=== PATIENT | male | born 1970 | race African-American/Black ===

== ENCOUNTER 2019-06-20 21:38 | Inpatient (IN) ==
[2019-06-20] MEDS ORDERED: ACETAMINOPHEN 500 MG TAB PO STA (23:59)
[2019-06-20] MEDS ORDERED: SODIUM CHLORIDE 0.9% 1000ML 1,000 ML IV ONE (23:59)
[2019-06-21 00:38] LABS: Basophils # (auto) 0.02 K/uL (0-0.2); Basophils % (auto) 0.2 %; Hematocrit (blood only) 42.7 % (42-52); Immature Granulocytes # (auto) 0.02 K/uL (0.00-0.02); Immature Granulocytes % (auto) 0.2 %; Lymphocytes # (auto) 1.57 K/uL (1.2-3.4); Lymphocytes % (auto) 16.7 %; Mean Corpuscular Hemoglobin 27.9 pg (25-34); Mean Corpuscular Hgb Conc 32.8 g/dL (32-36); Mean Corpuscular Volume 85.2 fL (80-100); Mean Platelet Volume 9.4 fL (7.4-10.4); Monocytes # (auto) 1.52 K/uL (0.11-0.59); Monocytes % (auto) 16.2 %; Neutrophils # (auto) 6.28 K/uL (1.4-6.5); Neutrophils % (auto) 66.7 %; Platelet Count 145 K/uL (130-400); RDW Coefficient of Variation 14.3 % (11.5-14.5); RDW Standard Deviation 44.5 fL (36.4-46.3); Red Blood Count 5.01 M/uL (4.7-6.1); White Blood Count 9.41 K/uL (4.8-10.8)
[2019-06-21 00:50] LABS: INR 1.2 (0.9-1.1); Partial Thromboplastin Time 27.1 Seconds (21.0-31.0); Prothrombin Time 12.5 Seconds (9.0-12.0)
[2019-06-21 00:55] LABS: Alanine Aminotransferase 36 U/L (12-78); Albumin Level 3.6 gm/dl (3.4-5.0); Aspartate Aminotransferase 45 U/L (15-37); BUN Creatinine Ratio 11.9 (10-20); Blood Urea Nitrogen 21 mg/dl (7-18); Carbon Dioxide 23 mmol/L (21-32); Chloride 103 mmol/L (98-107); Creatinine Clr Calc Pharmacy 56.2 ml/min; Est GFR (African American) 53.3; Glucose 121 mg/dl (70-99); Potassium 3.9 mmol/L (3.5-5.1); Sodium 137 mmol/L (136-145)
[2019-06-21 01:07] LABS: Albumin Globulin Ratio 0.7 (0.9-2); Alkaline Phosphatase 47 U/L (45-117); Bilirubin,Total 0.4 mg/dl (0.2-1); Creatine Kinase 586 U/L (39-308); Creatine Kinase MB < 1.0 ng/ml (0.5-3.6); Globulin 5.4 gm/dl (2.5-4.0); Troponin I 0.452 ng/ml (0-0.045)
[2019-06-21 01:11] LABS: Influenza A virus by PCR Neg for Influ A (Neg); Influenza B virus by PCR Neg for Influ B (Neg)
[2019-06-21] MEDS ORDERED: VANCOMYCIN CONSULT ACTIVE PRN (01:12)
[2019-06-21] MEDS ORDERED: LEVOFLOXACIN/D5W 750 MG/150 ML BAG IV STA (01:12)
[2019-06-21] MEDS ORDERED: VANCOMYCIN HCL 1,000 MG/270 ML BAG IV STA (01:12)
[2019-06-21] MEDS ORDERED: PIPERACILLIN/TAZOBACTAM 4.5 GM/120 ML BAG IV ONE (01:12)
[2019-06-21] MEDS ORDERED: PIPERACILL/TAZOBAC CONSULT ACTIVE PRN ×2 (01:12→07:01)
[2019-06-21] MEDS ORDERED: OPTIRAY 320 125ml IV PRN (01:49)
[2019-06-21] MEDS: SODIUM CHLORIDE 0.9% 1000ML 1,000 ML IV SCH ×3 (03:05→19:10)
--- NOTE | 2019-06-21 04:43 | History and Physical Report ---
DATE OF ADMISSION: 06/20/2019 CHIEF COMPLAINT: Fever. HISTORY OF PRESENT ILLNESS: This is a 49-year-old male with past medical history significant for schizophrenia and bipolar, who was brought in from half-way because of low-grade fever and some questionable mental status change. In the ER, he was found to have temperature spike and leukocytosis. Chest x-ray showed some right middle lobe pneumonia, received IV antibiotics in the ER. Currently, resting comfortably. The patient says he was having fever for the last 2-3 days, feeling weak and generalized weakness. He has some dry cough. That is the reason he came to the ER, has some mild headaches, no dizziness, no earache, no runny nose, no sore throat, no difficulty swallowing. Appetite is okay. Denies any shortness of breath, no chest pain, no nausea, no vomiting, no abdominal pain. Normal bowel and bladder movements. No burning micturition, no melena or black stools. No rash. Currently, resting comfortably. ALLERGIES: NKA. PAST MEDICAL HISTORY: As mentioned above. PAST SURGICAL HISTORY: None as per patient. MEDICATIONS: Benztropine 1mg po hs,, divalproex 1000mg po hs,, fluphenazine decanoate 25mg Im weekly. FAMILY HISTORY: Not on file. SOCIAL HISTORY: Quit smoking in January, did smoke few cigarettes a day for 20 years. Denies any alcohol use. History of smoking marijuana in the past. REVIEW OF SYMPTOMS: As per HPI. Rest of review of symptoms is negative. PHYSICAL EXAMINATION: GENERAL: The patient is alert and oriented, not in acute distress. HEENT: No pallor, no icterus. Pupils equal, round, reactive to light. NECK: No JVD, no neck masses. Supple. CARDIOVASCULAR: S1, S2 heard, regular rate and rhythm, no murmur, no gallop. RESPIRATORY SYSTEM: Normal AP diameter. No accessory muscle use. No wheezing, no crackles. ABDOMEN: Soft, bowel sounds present, nontender. No distention. CENTRAL NERVOUS SYSTEM: Cranial nerves II-XII grossly nonfocal. EXTREMITIES: No edema, no erythema. LABORATORY DATA: Wbc 9.3, hb 14.1, Hct 43.5,platelets 175, pt 12.5, inr 1.2, aptt 27.1, Sodium 137, potassium 3.9, chloride 103, co2 23, BUN 21, Cr 1.7, glucose 121, TSh 0.3. EKG NSR at rate of 98. Non specific St changes seen. CXR right middle lobe opacity. CTA chest No PE. Right upper lobe pneumonia, reactive right hilar lymphadenopathy, trace right pleural effusion. ASSESSMENT AND PLAN: This 49-year-old male presents with fever, cough, questionable mental status change and found to have pneumonia. 1. Pneumonia, right middle lobe, fever, leukocytosis. Received IV Zosyn, vancomycin and Levaquin in the ER. We will continue zosyn and doxycycline. Follow the cultures. Follow the response. IV fluids 125 mL per hour. Monitor in tele floor, med/surg tele. 2. History of schizophrenia and bipolar. Continue home medications. 3. ELENA vs CKD. Creatine 1.7. No baseline levels available. On iv fluids. Follow labs. 4. Deep venous thrombosis prophylaxis. Heparin subQ. DISPOSITION: Admit to med/surg tele. Level 1 full code. MTDD
[2019-06-21] MEDS: HEPARIN SOD 5,000 UNIT/0.5 ML VIAL SQ SCH ×3 (05:10→20:14)
--- NOTE | 2019-06-21 06:35 | Emergency Department Note ---
Entered by Cristian Dowling acting as a scribe for Horacio Reynolds MD History of Present Illness General Chief complaint: Fever Stated complaint: CHANGE OF MENTAL STATUS/FEVER Source: patient History of Present Illness Onset (ago): day(s) 3 Pain Consistency: + constant Quality: + other (fever) Associated symptoms: + other (Positive for intermittent cough, weakness, and AMS. Negative for abdominal pain.) Treatments prior to arrival: none The patient is a 49 year old male who presents to the emergency department with complaints of a constant fever beginning 3 days ago. The patient states that he has had an intermittent cough for the last 4-5 days. He notes that he has had a fever and weakness for the last 3 days. He also complains of AMS. He denies any abdominal pain. He reports that he is a former smoker. The patient states that he did not take any Tylenol or ibuprofen today. Home Medications Home Medications Medication Instructions Recorded Confirmed Type benztropine 1 mg PO HS 06/21/19 06/21/19 History divalproex 1,000 mg PO HS 06/21/19 06/21/19 History fluphenazine decanoate See Rx Instructions .ROUTE .COMPLEX 06/21/19 06/22/19 History acetaminophen 1,000 mg PO Q8H PRN #60 tab 06/24/19 Rx amoxicillin-pot clavulanate 1 tab PO BID #7 tab 06/24/19 Rx [Augmentin] doxycycline hyclate 100 mg PO BID #7 tab 06/24/19 Rx guaifenesin 200 mg PO Q6H PRN #118 ml 06/24/19 Rx Allergies Allergy/AdvReac Type Severity Reaction Status Date / Time No Known Allergies Allergy Unverified 06/21/19 00:57 Past Med/Surg History Medical History (Updated 06/24/19 @ 14:28 by Jonh Slade MD) Bipolar disorder (Chronic) No chronic problems Schizophrenia (Chronic) Family History (Updated 06/21/19 @ 05:02 by Cristian Dowling) Other No significant family history Social History (Updated 06/21/19 @ 05:02 by Cristian Dowling) Current Living Situation: Other Current Living Situation Comment: Custodial Smoking Status: Former smoker Review of Systems See HPI for pertinent positives & negatives. and A total of 10 systems reviewed and were otherwise negative Physical Exam Vital Signs Vital Signs - 24 hr 06/20/19 22:03 06/21/19 00:31 06/21/19 00:32 Temperature 39.4 C H Temperature Source Oral Pulse Rate 101 H 102 H Pulse Rate [Apical] 104 H Pulse Rate from SpO2 Sensor 102 H Respiratory Rate 18 24 Respiratory Effort / Characteristics Non-Labored Spontaneous Non-Labored Respiratory Depth Normal Normal Respiratory Pattern Regular Blood Pressure 103/62 116/69 Blood Pressure [Right Arm] 116/69 Blood Pressure Mean 75 84 Blood Pressure Mean [Right Arm] 84 Blood Pressure Position Sitting Pulse Oximetry 96 97 97 Oxygen Delivery Method Room Air Room Air Room Air Sepsis Recent Fever Within 48 Hours Yes Sepsis Action Taken by Nursing No Action Required 06/21/19 01:00 06/21/19 01:30 Temperature Temperature Source Pulse Rate 101 H 97 H Pulse Rate [Apical] Pulse Rate from SpO2 Sensor 100 H 97 H Respiratory Rate 28 H 34 H Respiratory Effort / Characteristics Respiratory Depth Respiratory Pattern Blood Pressure 107/68 106/58 L Blood Pressure [Right Arm] Blood Pressure Mean 81 74 Blood Pressure Mean [Right Arm] Blood Pressure Position Pulse Oximetry 96 95 Oxygen Delivery Method Sepsis Recent Fever Within 48 Hours Sepsis Action Taken by Nursing GENERAL: Awake, alert, well-appearing, in no acute distress HENT: Normocephalic, atraumatic. Oropharynx unremarkable. EYES: Normal conjunctiva. Sclera non-icteric. NECK: Supple. No nuchal rigidity. FROM. No JVD. RESPIRATORY: Clear to auscultation. CARDIAC: Regular rate, normal rhythm. Extremities warm and well perfused. Pulses equal. ABDOMEN: Soft, non-distended. No tenderness to palpation. No rebound or guarding. No masses. RECTAL: Deferred. MUSCULOSKELETAL: Chest examination reveals no tenderness. The back is symmetrical on inspection without obvious abnormality. There is no CVA tenderness to palpation. No joint edema. LOWER EXTREMITIES: Calves are equal size bilaterally and non-tender. No edema. No discoloration. NEURO: Normal sensorium. No sensory or motor deficits noted. SKIN: No rash or jaundice noted. Course 0010: The patient was evaluated in room C9. A complete history and physical exam was performed. 0146: Upon reevaluation, the patient is feeling better. I discussed the findings and the treatment plan with the patient. He verbalizes agreement and understanding. I discussed the patients case with Dr. Tran HospitalistRosendo. The patient will be evaluated for further treatment. Consultations Consultation #1: I discussed the patients case with Dr. Tran HospitalistRosendo. The patient will be evaluated for further treatment. Time: 01:46 Administered Medications Discontinued Medications Acetaminophen (Tylenol) 1,000 mg PO NOW STA Stop: 06/21/19 00:00 Last Admin: 06/21/19 00:17 Dose: 1,000 mg Documented by: [id number] Acetaminophen (Tylenol) 650 mg PO Q4H PRN PRN Reason: Pain or Fever Stop: 07/21/19 15:19 Last Admin: 06/23/19 22:35 Dose: 650 mg Documented by: [id number] Admin: 06/22/19 19:56 Dose: 650 mg Documented by: [id number] Admin: 06/22/19 11:22 Dose: 650 mg Documented by: [id number] Admin: 06/21/19 23:22 Dose: 650 mg Documented by: [id number] Admin: 06/21/19 15:36 Dose: 650 mg Documented by: [id number] Benztropine Mesylate (Cogentin) 1 mg PO [facility] Stop: 07/21/19 20:59 Last Admin: 06/23/19 20:49 Dose: 1 mg Documented by: [id number] Admin: 06/22/19 20:54 Dose: 1 mg Documented by: [id number] Admin: 06/21/19 20:14 Dose: 1 mg Documented by: [id number] Divalproex Sodium (Depakote Delay Release) 1,000 mg PO [facility] Stop: 07/21/19 20:59 Last Admin: 06/23/19 20:49 Dose: 1,000 mg Documented by: [id number] Admin: 06/22/19 20:54 Dose: 1,000 mg Documented by: [id number] Admin: 06/21/19 20:13 Dose: 1,000 mg Documented by: [id number] Fluphenazine Decanoate (Prolixin Decanoate) 25 mg IM We@0900 [facility] Stop: 07/22/19 08:59 Last Admin: 06/22/19 08:13 Dose: 25 mg Documented by: [id number] Heparin Sodium (Porcine) (Heparin Sodium (Porcine)) 5,000 units SQ Q8 [facility] Stop: 07/21/19 05:59 Last Admin: 06/24/19 05:42 Dose: 5,000 units Documented by: [id number] Cosigned by: [id number] Admin: 06/23/19 20:50 Dose: 5,000 units Documented by: [id number] Cosigned by: [id number] Admin: 06/23/19 13:40 Dose: 5,000 units Documented by: [id number] Cosigned by: [id number] Admin: 06/23/19 05:49 Dose: 5,000 units Documented by: [id number] Cosigned by: [id number] Admin: 06/22/19 20:58 Dose: 5,000 units Documented by: [id number] Cosigned by: [id number] Admin: 06/22/19 14:00 Dose: 5,000 units Documented by: [id number] Cosigned by: [id number] Admin: 06/22/19 05:45 Dose: 5,000 units Documented by: [id number] Cosigned by: [id number] Admin: 06/21/19 20:14 Dose: 5,000 units Documented by: [id number] Cosigned by: [id number] Admin: 06/21/19 14:12 Dose: 5,000 units Documented by: [id number] Cosigned by: [id number] Admin: 06/21/19 05:10 Dose: 5,000 units Documented by: [id number] Cosigned by: [id number] Sodium Chloride (Nss 1000ml) 1,000 mls @ 999 mls/hr IV .Q1H1M ONE Stop: 06/21/19 00:59 Last Infusion: 06/21/19 01:38 Dose: 0 mls/hr Documented by: [id number] Admin: 06/21/19 00:20 Dose: 999 mls/hr Documented by: [id number] Piperacillin Sod/Tazobactam Sod (Zosyn) 4.5 gm in 120 mls @ 240 mls/hr IV NOW ONE Stop: 06/21/19 01:41 Last Infusion: 06/21/19 04:58 Dose: 0 mls/hr Documented by: [id number] Admin: 06/21/19 01:50 Dose: 240 mls/hr Documented by: [id number] Vancomycin HCl (Vancomycin Hcl) 1,000 mg in 270 mls @ 125 mls/hr IV NOW STA; Pr otocol Stop: 06/21/19 03:21 Last Admin: 06/21/19 05:00 Dose: Not Given Documented by: [id number] Levofloxacin/Dextrose (Levaquin/D5w) 750 mg in 150 mls @ 100 mls/hr IV NOW STA Stop: 06/21/19 02:41 Last Admin: 06/21/19 04:59 Dose: Not Given Documented by: [id number] Doxycycline Hyclate 100 mg/ (Dextrose) 110 mls @ 50 mls/hr IV BID [facility] Stop: 06/28/19 08:59 Last Infusion: 06/24/19 10:27 Dose: 0 mls/hr Documented by: [id number] Admin: 06/24/19 08:06 Dose: Not Given Documented by: [id number] Admin: 06/24/19 08:03 Dose: 50 mls/hr Documented by: [id number] Infusion: 06/23/19 22:59 Dose: 0 mls/hr Documented by: [id number] Admin: 06/23/19 20:47 Dose: 50 mls/hr Documented by: [id number] Infusion: 06/23/19 10:47 Dose: 50 mls/hr Documented by: [id number] Admin: 06/23/19 08:23 Dose: 50 mls/hr Documented by: [id number] Infusion: 06/22/19 23:06 Dose: 0 mls/hr Documented by: [id number] Admin: 06/22/19 20:54 Dose: 50 mls/hr Documented by: [id number] Infusion: 06/22/19 10:26 Dose: 0 mls/hr Documented by: [id number] Admin: 06/22/19 08:14 Dose: 50 mls/hr Documented by: [id number] Infusion: 06/21/19 22:26 Dose: 0 mls/hr Documented by: [id number] Admin: 06/21/19 20:13 Dose: 50 mls/hr Documented by: [id number] Infusion: 06/21/19 13:24 Dose: 0 mls/hr Documented by: [id number] Admin: 06/21/19 11:03 Dose: 50 mls/hr Documented by: [id number] Sodium Chloride (Nss 1000ml) 1,000 mls @ 125 mls/hr IV .Q8H [facility] Stop: 07/21/19 04:29 Last Admin: 06/24/19 14:19 Dose: 125 mls/hr Documented by: [id number] Infusion: 06/24/19 12:20 Dose: 125 mls/hr Documented by: [id number] Admin: 06/24/19 04:20 Dose: 125 mls/hr Documented by: [id number] Infusion: 06/24/19 03:50 Dose: 125 mls/hr Documented by: [id number] Admin: 06/23/19 19:50 Dose: 125 mls/hr Documented by: [id number] Infusion: 06/23/19 19:50 Dose: 125 mls/hr Documented by: [id number] Infusion: 06/23/19 19:01 Dose: 125 mls/hr Documented by: [id number] Admin: 06/23/19 11:07 Dose: Not Given Documented by: [id number] Admin: 06/23/19 11:03 Dose: 125 mls/hr Documented by: [id number] Infusion: 06/23/19 10:43 Dose: 125 mls/hr Documented by: [id number] Admin: 06/23/19 02:43 Dose: 125 mls/hr Documented by: [id number] Infusion: 06/23/19 00:12 Dose: 125 mls/hr Documented by: [id number] Infusion: 06/22/19 19:57 Dose: 125 mls/hr Documented by: [id number] Admin: 06/22/19 12:20 Dose: 125 mls/hr Documented by: [id number] Infusion: 06/22/19 11:10 Dose: 125 mls/hr Documented by: [id number] Admin: 06/22/19 03:10 Dose: 125 mls/hr Documented by: [id number] Infusion: 06/22/19 03:10 Dose: 125 mls/hr Documented by: [id number] Admin: 06/21/19 19:10 Dose: 125 mls/hr Documented by: [id number] Infusion: 06/21/19 19:09 Dose: 125 mls/hr Documented by: [id number] Admin: 06/21/19 11:09 Dose: 125 mls/hr Documented by: [id number] Infusion: 06/21/19 11:05 Dose: 125 mls/hr Documented by: [id number] Admin: 06/21/19 03:05 Dose: 125 mls/hr Documented by: [id number] Piperacillin Sod/Tazobactam (Sod 3.375 gm/ Dextrose) 115 mls @ 28.75 mls/hr IV Q8H [facility]; Protocol Stop: 06/28/19 07:59 Last Infusion: 06/24/19 14:30 Dose: 0 mls/hr Documented by: [id number] Admin: 06/24/19 10:27 Dose: 28.8 mls/hr Documented by: [id number] Infusion: 06/24/19 03:42 Dose: 0 mls/hr Documented by: [id number] Admin: 06/23/19 23:45 Dose: 28.8 mls/hr Documented by: [id number] Infusion: 06/23/19 19:57 Dose: 0 mls/hr Documented by: [id number] Admin: 06/23/19 15:55 Dose: 28.8 mls/hr Documented by: [id number] Infusion: 06/23/19 12:58 Dose: 28.8 mls/hr Documented by: [id number] Admin: 06/23/19 08:46 Dose: 28.8 mls/hr Documented by: [id number] Infusion: 06/23/19 03:23 Dose: 0 mls/hr Documented by: [id number] Admin: 06/22/19 23:23 Dose: 28.8 mls/hr Documented by: [id number] Infusion: 06/22/19 19:57 Dose: 0 mls/hr Documented by: [id number] Admin: 06/22/19 15:51 Dose: 28.8 mls/hr Documented by: [id number] Infusion: 06/22/19 12:20 Dose: 0 mls/hr Documented by: [id number] Admin: 06/22/19 08:13 Dose: 28.8 mls/hr Documented by: [id number] Infusion: 06/22/19 03:22 Dose: 0 mls/hr Documented by: [id number] Admin: 06/21/19 23:22 Dose: 28.8 mls/hr Documented by: [id number] Infusion: 06/21/19 19:41 Dose: 0 mls/hr Documented by: [id number] Admin: 06/21/19 15:36 Dose: 28.8 mls/hr Documented by: [id number] Infusion: 06/21/19 12:54 Dose: 0 mls/hr Documented by: [id number] Admin: 06/21/19 08:26 Dose: 28.8 mls/hr Documented by: [id number] Ibuprofen (Motrin) 600 mg PO NOW STA Stop: 06/22/19 20:45 Last Admin: 06/22/19 20:53 Dose: 600 mg Documented by: [id number] Influenza Virus Vaccine Quadrival (Flucelvax Quad Vaccine) 0.5 ml IM .ONCE ONE Stop: 06/23/19 14:01 Last Admin: 06/23/19 13:41 Dose: 0.5 ml Documented by: [id number] Ioversol (Optiray 320 125ml) 125 ml IV ONCE PRN PRN Reason: Interaction Checking Stop: 06/25/19 01:48 Last Admin: 06/21/19 01:49 Dose: 86 ml Documented by: [id number] Ketorolac Tromethamine (Toradol) 30 mg IV NOW ONE Stop: 06/22/19 01:23 Last Admin: 06/22/19 01:33 Dose: 30 mg Documented by: [id number] Ketorolac Tromethamine (Toradol) 15 mg IV NOW ONE Stop: 06/22/19 23:06 Last Admin: 06/22/19 23:17 Dose: 15 mg Documented by: [id number] Ketorolac Tromethamine (Toradol) 15 mg IV NOW ONE Stop: 06/23/19 23:23 Last Admin: 06/23/19 23:45 Dose: 15 mg Documented by: [id number] Impression & Plan Fever, Pneumonia, Elevated troponin Critical Care Time I have personally spent greater than 30 minutes of critical care time in the direct management of this patient. This includes bedside care, interpretation of diagnostic studies, and testing, discussion with consultants, patient, and family members, and other required patient management activities. This 30 minutes is in excess of all separately billable procedures. Discharge Plan Visit Data *Final* Discharge Date/Time: 06/21/19 04:24 Chief Complaint: Fever Stated Complaint: CHANGE OF MENTAL STATUS/FEVER ED Provider: Horacio Reynolds Discharge Problem: Fever, Pneumonia, Elevated troponin Patient Disposition: Admitted As Inpatient Condition: Good Medical Decision Making Differential Diagnosis Differential diagnosis: Etiologies such as viral syndrome, otitis, pharyngitis, pneumonia, influenza, meningitis, urinary tract infection, septic arthritis, soft tissue infectious process, intra-abdominal process, sepsis, bacteremia, as well as others were entertained. Medical Records Attestation: I reviewed the patient's medical records. Home Medications Current Medication List: was personally reviewed by me Laboratory Data Attestation: I reviewed the patient's lab results. Result diagrams: 06/22/19 05:42 06/22/19 05:42 Lab Results 06/21/19 06/21/19 06/21/19 Range/Units 00:22 00:22 00:22 WBC 9.41 (4.8-10.8) K/uL RBC 5.01 (4.7-6.1) M/uL Hgb 14.0 (14.0-18.0) g/dL Hct 42.7 (42-52) % MCV 85.2 (80-100) fL MCH 27.9 (25-34) pg MCHC 32.8 (32-36) g/dL RDW Std Deviation 44.5 (36.4-46.3) fL RDW Coeff of Will 14.3 (11.5-14.5) % Plt Count 145 (130-400) K/uL MPV 9.4 (7.4-10.4) fL Immature Gran % (Auto) 0.2 % Neut % (Auto) 66.7 % Lymph % (Auto) 16.7 % [place] % (Auto) 16.2 % Eos % (Auto) 0.0 % Baso % (Auto) 0.2 % Immature Gran # (Auto) 0.02 (0.00-0.02) K/uL Neut # (Auto) 6.28 (1.4-6.5) K/uL Lymph # (Auto) 1.57 (1.2-3.4) K/uL [place] # (Auto) 1.52 H (0.11-0.59) K/uL Eos # (Auto) 0.00 (0-0.5) K/uL Baso # (Auto) 0.02 (0-0.2) K/uL PT 12.5 H (9.0-12.0) Seconds INR 1.2 H (0.9-1.1) APTT 27.1 (21.0-31.0) Seconds PTT Ratio 1.0 Sodium 137 (136-145) mmol/L Potassium 3.9 (3.5-5.1) mmol/L Chloride 103 (98-107) mmol/L Carbon Dioxide 23 (21-32) mmol/L Anion Gap 11.0 (3-11) BUN 21 H (7-18) mg/dl Creatinine 1.73 H (0.6-1.4) mg/dl Est Cr Clr Drug Dosing 56.2 ml/min Est GFR ( Amer) 53.3 Est GFR (Non-Af Amer) 46.0 BUN/Creatinine Ratio 11.9 (10-20) Glucose 121 H (70-99) mg/dl Lactate (0.4-2.0) mmol/L Calcium 9.0 (8.5-10.1) mg/dl Total Bilirubin 0.4 (0.2-1) mg/dl AST 45 H (15-37) U/L ALT 36 (12-78) U/L Alkaline Phosphatase 47 (45-117) U/L Total Creatine Kinase 586 H (39-308) U/L CK-MB (CK-2) < 1.0 (0.5-3.6) ng/ml CK/CKMB % Calc TNP Troponin I 0.452 H* (0-0.045) ng/ml Total Protein 9.0 H (6.4-8.2) gm/dl Albumin 3.6 (3.4-5.0) gm/dl Globulin 5.4 H (2.5-4.0) gm/dl Albumin/Globulin Ratio 0.7 L (0.9-2) Influenza Type A (PCR) (Neg) Influenza Type B (PCR) (Neg) 06/21/19 06/21/19 Range/Units 00:22 00:49 WBC (4.8-10.8) K/uL RBC (4.7-6.1) M/uL Hgb (14.0-18.0) g/dL Hct (42-52) % MCV (80-100) fL MCH (25-34) pg MCHC (32-36) g/dL RDW Std Deviation (36.4-46.3) fL RDW Coeff of Will (11.5-14.5) % Plt Count (130-400) K/uL MPV (7.4-10.4) fL Immature Gran % (Auto) % Neut % (Auto) % Lymph % (Auto) % [place] % (Auto) % Eos % (Auto) % Baso % (Auto) % Immature Gran # (Auto) (0.00-0.02) K/uL Neut # (Auto) (1.4-6.5) K/uL Lymph # (Auto) (1.2-3.4) K/uL [place] # (Auto) (0.11-0.59) K/uL Eos # (Auto) (0-0.5) K/uL Baso # (Auto) (0-0.2) K/uL PT (9.0-12.0) Seconds INR (0.9-1.1) APTT (21.0-31.0) Seconds PTT Ratio Sodium (136-145) mmol/L Potassium (3.5-5.1) mmol/L Chloride (98-107) mmol/L Carbon Dioxide (21-32) mmol/L Anion Gap (3-11) BUN (7-18) mg/dl Creatinine (0.6-1.4) mg/dl Est Cr Clr Drug Dosing ml/min Est GFR ( Amer) Est GFR (Non-Af Amer) BUN/Creatinine Ratio (10-20) Glucose (70-99) mg/dl Lactate 1.7 (0.4-2.0) mmol/L Calcium (8.5-10.1) mg/dl Total Bilirubin (0.2-1) mg/dl AST (15-37) U/L ALT (12-78) U/L Alkaline Phosphatase (45-117) U/L Total Creatine Kinase (39-308) U/L CK-MB (CK-2) (0.5-3.6) ng/ml CK/CKMB % Calc Troponin I (0-0.045) ng/ml Total Protein (6.4-8.2) gm/dl Albumin (3.4-5.0) gm/dl Globulin (2.5-4.0) gm/dl Albumin/Globulin Ratio (0.9-2) Influenza Type A (PCR) Neg for Influ A (Neg) Influenza Type B (PCR) Neg for Influ B (Neg) Imaging Data Attestation: I personally reviewed and interpreted this imaging study as follows: My Impression: 1 VIEW CHEST X-RAY: pneumonia: RUL; NO: congestion, and pneumothorax. Radiologist's Impression: Radiology results as stated below per my review and the radiologist's interpretation: CTA CHEST: No pulmonary embolism. Consolidation in the right upper lobe consistent with pneumonia. Radiologist: Ric Ashford MD. ECG Data Attestation: I personally reviewed and interpreted this ECG as follows: Indication: + weakness Rate (beats per minute): 98 Rhythm: + normal sinus ECG ST segments: no ST depression and no ST elevation Blood Pressure Blood Pressure Findings: Normal blood pressure Blood Pressure Disposition: did not require urgent referral MDM Narrative This is a 49-year-old male who presents emergency department complaining of fever. The patient presents the emergency department during a period of high vo lume and high acuity during a [employer] downtime. He does have a fever upon arrival. He was given Tylenol. Blood cultures were obtained. The patient does not have an elevation in his white blood cell count however he appears to have pneumonia on his chest x-ray. He also has an elevation in his troponin. Patient was started on IV antibiotics including Zosyn Levaquin and vancomycin. Because of the elevation of the troponin I did discuss the case with the hospitalist service who agreed to admit the patient. Patient was in agreement with the treatment plan. Discharge Problem: Pneumonia Qualifiers: Pneumonia type: due to unspecified organism Laterality: right Lung location: middle lobe of lung Qualified Code(s): J18.1 - Lobar pneumonia, unspecified organism The scribe's documentation has been prepared under my direction and personally reviewed by me in its entirety. I confirm that the note above accurately reflects all work, treatment, procedures, and medical decision making performed by me.
[2019-06-21 06:47] LABS: Appearance Urine Clear (Clear); Bilirubin Urine Negative (Negative); Blood Urine Negative (Negative); Color Urine Dark Yellow; Glucose Urine UA Negative (Negative); Ketones Urine Trace (Negative); Leukocyte Esterase Urine Negative (Negative); Nitrite Urine Negative (Negative); Protein Urine Negative (Negative); Specific Gravity Urine > 1.045 (1.000-1.030); Urobilinogen Urine Negative (Negative); pH Urine 5.5 (4.5-7.5)
--- NOTE | 2019-06-21 06:54 | XRay Report ---
XR chest 1V portable CLINICAL HISTORY: Sepsis COMPARISON STUDY: No previous studies for comparison. FINDINGS: The heart is normal in size. There is no failure. There is a right midlung zone opacity nuris picious for a pneumonia. Imaging subsequent to treatment is recommended in follow-up. There are no pl eural effusions.[ IMPRESSION: Right midlung zone airspace opacity suspicious for pneumonia. Imaging subsequent to treat ment is recommended in follow-up. Electronically signed by: Aram Hester M.D. 06/21/2019 6:53 AM
--- NOTE | 2019-06-21 07:12 | CT Scan Report ---
CT angio chest PE protocol CT DOSE: 336.13 mGy.cm HISTORY: 49 years-old Male with PE. Acute shortness of breath with fever TECHNIQUE: Multiple CTA images of the chest were obtained after the intravenous administration of 86 ml Optiray 320. Coronal and sagittal MIPS were obtained from the axial data set and were submitted f or review. All measurements were obtained according to NASCET criteria. A dose lowering technique wa s utilized adhering to the principles of ALARA. COMPARISON: Chest radiograph 06/21/2019 FINDINGS: CTA: Heart is upper limits of normal in size. No pericardial effusion. No thoracic aortic aneurysm or diss ection. There is patency of the imaged great vessels. Pulmonary arterial tree vessels of the lung bas es are suboptimally visualized secondary to respiratory motion. No focal filling defect identified to suggest pulmonary thromboembolic disease. CT CHEST: Unremarkable thyroid. Soft tissue density of the anterior mediastinum may reflect residual thymic tis daylin. Enlarged right hilar lymph nodes measure up to 1.3 cm, likely reactive. Trace right pleural effu levon. No pneumothorax. Mild dependent subsegmental atelectasis of the lung bases. The left lungs othe rwise generally clear. Consolidation of the anterior segment right upper lobe with adjacent groundgla ss opacities. No acute process of the imaged upper abdomen. Bilateral gynecomastia. Bones appear intact. IMPRESSION: 1. No evidence of pulmonary thromboembolic disease. 2. Right upper lobe pneumonia with likely reactive right hilar adenopathy. 3. Trace right pleural effusion. The above report was generated using voice recognition software. It may contain grammatical, syntax o r spelling errors. Electronically signed by: Espinoza Rodriguez M.D. 06/21/2019 7:11 AM
[2019-06-21 07:25] LABS: Basophils # (auto) 0.02 K/uL (0-0.2); Basophils % (auto) 0.3 %; Hematocrit (blood only) 37.7 % (42-52); Hemoglobin 12.6 g/dL (14.0-18.0); Immature Granulocytes # (auto) 0.02 K/uL (0.00-0.02); Immature Granulocytes % (auto) 0.3 %; Lymphocytes # (auto) 1.97 K/uL (1.2-3.4); Mean Corpuscular Hemoglobin 28.3 pg (25-34); Mean Corpuscular Hgb Conc 33.4 g/dL (32-36); Mean Corpuscular Volume 84.7 fL (80-100); Mean Platelet Volume 9.6 fL (7.4-10.4); Monocytes # (auto) 1.13 K/uL (0.11-0.59); Monocytes % (auto) 14.9 %; Neutrophils # (auto) 4.44 K/uL (1.4-6.5); Neutrophils % (auto) 58.5 %; Platelet Count 137 K/uL (130-400); RDW Coefficient of Variation 14.4 % (11.5-14.5); Red Blood Count 4.45 M/uL (4.7-6.1); White Blood Count 7.58 K/uL (4.8-10.8)
[2019-06-21 07:57] LABS: BUN Creatinine Ratio 13.6 (10-20); Creatinine Clr Calc Pharmacy 79.7 ml/min; Est GFR (African American) 81.3; Est GFR (Non-African American) 70.2; Magnesium 2.1 mg/dl (1.8-2.4); Potassium 3.7 mmol/L (3.5-5.1)
[2019-06-21] MEDS ORDERED: cefTRIAXone SODIUM 2,000 MG in DEXTROSE 5% 50 ML IV SCH (08:00)
[2019-06-21 08:04] LABS: Troponin I 0.335 ng/ml (0-0.045)
[2019-06-21] MEDS: PIPERACILLIN/TAZOBACTAM 3.375 GM in DEXTROSE 5% 100 ML IV SCH ×3 (08:26→23:22)
[2019-06-21] MEDS: DOXYCYCLINE HYCLATE 100 MG in DEXTROSE 5% 100 ML IV SCH ×2 (11:03→20:13)
[2019-06-21] MEDS: ACETAMINOPHEN 325 MG TAB PO PRN ×2 (15:36→23:22)
--- NOTE | 2019-06-21 17:10 | Hospitalist Progress Note ---
Date of Service June 21, 2019 Assessment & Plan (1) Pneumonia: Patient is a 49 yr male who presents with fever, cough, questionable mental status change and found to have pneumonia. Sepsis SIRS+ Pneumonia CTA:No evidence of pulmonary thromboembolic disease. Right upper lobe pneumonia with likely reactive right hilar adenopathy. Trace right pleural effusion. Influenza Screen: Negative Normal lactate levels No leukocytosis Blood Cx:Pending Check Sputum Cx Continue Zosyn, Doxy Day #1 Continue IV fluids Elevated Troponin Likely demand Ischemia due to sepsis Troponin trending down EKG:Non specific ST-T wave abnormality ECHO: No wall motion abnormality, Mild LVH, EF: 65-70%, no pericardial effusion Patient denies chest pain Acute Kidney Injury Unknown Baseline renal function Cr:1.7>>1.2 Continue IV fluids Avoid Nephrotoxic agents as able H/O Schizophrenia H/O Bipolar disorder Continue Divalproex, Fluphenazine, Cogentin DVT Px: Heparin SQ Code Status Full Code Disposition Discharge back to correctional facility when medically stable Subjective Patient is seen and examined at bedside Complains of cough Denies chest pain, SOB, dizziness, nausea, abd pain, diarrhea Poor historian Febrile, Tachycardic today Guards at bedside Review of Systems Review of Systems: All systems reviewed & are unremarkable except as noted in HPI & below Physical Exam Physical Exam: Physical Exam: Vitals signs as noted above General Appearance:Moderately built and nourished, no apparent distress Head: normocephalic, Atraumatic Eyes: normal inspection, EOMI Neck: supple, Trachea midline Respiratory/Chest: Normal breath sounds, CTA Cardiovascular: S1, S2, No murmur, +Tachycardia Abdomen/GI:Soft, Non tender, Bowel sounds present Extremities/Musculoskelatal:normal inspection, no edema Neurologic/Psych:AAOX3, grossly no focal neurological deficits Skin: normal color, warm Results & Data Vital Signs (Past 12 Hours) Vital Signs Temp Pulse Pulse Resp BP Pulse Ox 06/21/19 16:18 110 H 06/21/19 15:15 38.1 C H 95 H 20 124/72 98 06/21/19 11:16 37.0 C 101 H 18 114/71 97 06/21/19 06:29 37.1 C 92 H 19 113/76 96 Laboratory Results Short CBC 06/21/19 06/21/19 Range/Units 00:22 07:06 WBC 9.41 7.58 (4.8-10.8) K/uL Hgb 14.0 12.6 L (14.0-18.0) g/dL Hct 42.7 37.7 L (42-52) % Plt Count 145 137 (130-400) K/uL BMP 06/21/19 06/21/19 00:22 07:06 Sodium 137 137 Potassium 3.9 3.7 Chloride 103 104 Carbon Dioxide 23 25 BUN 21 H 17 Creatinine 1.73 H 1.22 D Glucose 121 H 106 H Calcium 9.0 8.0 L Cardiac Enzymes 06/21/19 06/21/19 06/21/19 Range/Units 00:22 07:06 12:38 Total Creatine Kinase 586 H (39-308) U/L CK-MB (CK-2) < 1.0 (0.5-3.6) ng/ml Troponin I 0.452 H* 0.335 H* 0.281 H* (0-0.045) ng/ml Liver Function 06/21/19 Range/Units 00:22 Total Bilirubin 0.4 (0.2-1) mg/dl AST 45 H (15-37) U/L ALT 36 (12-78) U/L Alkaline Phosphatase 47 (45-117) U/L Albumin 3.6 (3.4-5.0) gm/dl Urine 06/21/19 Range/Units 06:30 Urine Color Dark Yellow Urine Appearance Clear (Clear) Urine pH 5.5 (4.5-7.5) Ur Specific Eros > 1.045 H (1.000-1.030) Urine Protein Negative (Negative) Urine Glucose (UA) Negative (Negative) (1) Pneumonia Laterality: right Lung location: middle lobe of lung Pneumonia type: due to unspecified organism Qualified Code(s): J18.1 - Lobar pneumonia, unspecified organism
[2019-06-21] MEDS: DIVALPROEX DELAY RELEASE 500 MG TAB PO SCH (20:13)
[2019-06-21] MEDS: BENZTROPINE MESYLATE 1 MG TAB PO SCH (20:14)
[2019-06-22] MEDS ORDERED: KETOROLAC 30 MG/ML VIAL IV ONE (01:22)
[2019-06-22] MEDS: SODIUM CHLORIDE 0.9% 1000ML 1,000 ML IV SCH ×2 (03:10→12:20)
[2019-06-22] MEDS: HEPARIN SOD 5,000 UNIT/0.5 ML VIAL SQ SCH ×3 (05:45→20:58)
[2019-06-22 06:13] LABS: Basophils # (auto) 0.02 K/uL (0-0.2); Basophils % (auto) 0.3 %; Hematocrit (blood only) 35.4 % (42-52); Hemoglobin 11.4 g/dL (14.0-18.0); Immature Granulocytes # (auto) 0.01 K/uL (0.00-0.02); Immature Granulocytes % (auto) 0.2 %; Lymphocytes # (auto) 2.67 K/uL (1.2-3.4); Lymphocytes % (auto) 45.5 %; Mean Corpuscular Hemoglobin 27.2 pg (25-34); Mean Corpuscular Hgb Conc 32.2 g/dL (32-36); Mean Corpuscular Volume 84.5 fL (80-100); Mean Platelet Volume 9.6 fL (7.4-10.4); Monocytes # (auto) 0.58 K/uL (0.11-0.59); Monocytes % (auto) 9.9 %; Neutrophils # (auto) 2.59 K/uL (1.4-6.5); Neutrophils % (auto) 44.1 %; Platelet Count 135 K/uL (130-400); RDW Coefficient of Variation 14.5 % (11.5-14.5); RDW Standard Deviation 45.1 fL (36.4-46.3); Red Blood Count 4.19 M/uL (4.7-6.1); White Blood Count 5.87 K/uL (4.8-10.8)
[2019-06-22 06:49] LABS: BUN Creatinine Ratio 9.7 (10-20); Calcium 7.9 mg/dl (8.5-10.1); Creatinine Clr Calc Pharmacy 94.4 ml/min; Est GFR (African American) 99.8; Est GFR (Non-African American) 86.1; Magnesium 2.1 mg/dl (1.8-2.4); Potassium 3.7 mmol/L (3.5-5.1)
[2019-06-22] MEDS: PIPERACILLIN/TAZOBACTAM 3.375 GM in DEXTROSE 5% 100 ML IV SCH ×3 (08:13→23:23)
[2019-06-22] MEDS: DOXYCYCLINE HYCLATE 100 MG in DEXTROSE 5% 100 ML IV SCH ×2 (08:14→20:54)
[2019-06-22] MEDS: ACETAMINOPHEN 325 MG TAB PO PRN ×2 (11:22→19:56)
[2019-06-22] MEDS ORDERED: IBUPROFEN 600 MG TAB PO STA (20:44)
[2019-06-22] MEDS: BENZTROPINE MESYLATE 1 MG TAB PO SCH (20:54)
[2019-06-22] MEDS: DIVALPROEX DELAY RELEASE 500 MG TAB PO SCH (20:54)
--- NOTE | 2019-06-22 22:17 | Hospitalist Progress Note ---
Date of Service June 22, 2019 Assessment & Plan (1) Sepsis: Met criteria for sepsis per current CMS criteria-fever, tachycardia. Source = pulmonary. Serum lactate 1.7. Blood cultures obtained received broad-spectrum antibiotic coverage. Systolic blood pressures greater than 90. (2) Pneumonia: Chest x-ray and CT of chest demonstrated right middle lobe infiltrate. Blood cultures negative so far. Persistent fever, chills, cough. Continue doxycycline and piperacillin/tazobactam. Follow-up diagnostic imaging recommended to ensure resolution of radiographic abnormalities. (3) Elevated troponin: Serum troponin 0 0.452 at time of admission and trended downward. EKG showed sinus rhythm with nonspecific ST, T wave abnormalities. Echocardiogram showed mild concentric LVH, no segmental wall motion abnormalities, LVEF 65-70%. Elevated troponin attributed to pneumonia/sepsis. Acute coronary syndrome felt to be unlikely. (4) Schizophrenia: Managed with fluphenazine decanoate injections q 2 weeks. Inadvertently received dose early today. Start new schedule every 2 weeks with next injection on 07/06. (5) Bipolar disorder: Continue divalproex sodium. (6) DVT prophylaxis: Subcutaneous heparin. Ambulate as able. (7) Discharge planning issues: Anticipated return to [facility]. Subjective Recheck for pneumonia. Patient seen in their room around 1340. Intermittent fever and chills. Persistent cough. Chest wall discomfort with coughing. Review of Systems: Constitutional- as noted above. Cardiac- no anginal symptoms. Pulmonary- as noted above. GI- no nausea, vomiting, diarrhea, melena, hematochezia. - no urinary symptoms. Otherwise, as noted above. Physical Exam Constitutional: no acute distress Eyes: + anicteric sclerae Respiratory: no respiratory distress Auscultation: + rhonchi Cardiovascular: Rate/Rhythm: regular rate and regular rhythm Heart Sounds: no gallop, no murmur and no cardiac rub Vessels: no JVD Extremities: no calf tenderness and no edema Gastrointestinal (Abdomen): normal bowel sounds, soft, nontender, no hepatosplenomegaly Skin: no rashes, warm and dry Psychiatric: Orientation: alert and oriented x 3 Results & Data Vital Signs (Past 12 Hours) Vital Signs Temp Pulse Pulse Resp BP BP Pulse Ox 06/22/19 21:26 38.6 C H 06/22/19 19:53 39.5 C H 68 20 122/73 96 06/22/19 16:09 61 06/22/19 14:39 38.0 C H 66 18 105/65 99 06/22/19 11:38 38.1 C H 79 18 121/72 98 06/22/19 10:20 60 Laboratory Results 06/22/19 05:42 06/22/19 05:42 (1) Pneumonia Laterality: right Lung location: middle lobe of lung Pneumonia type: due to unspecified organism Qualified Code(s): J18.1 - Lobar pneumonia, unspecified organism
[2019-06-22] MEDS ORDERED: KETOROLAC TROMETHAMINE 15 MG/ML VIAL IV ONE (23:05)
[2019-06-23] MEDS: SODIUM CHLORIDE 0.9% 1000ML 1,000 ML IV SCH ×4 (02:43→19:50)
[2019-06-23] MEDS: HEPARIN SOD 5,000 UNIT/0.5 ML VIAL SQ SCH ×3 (05:49→20:50)
[2019-06-23] MEDS: DOXYCYCLINE HYCLATE 100 MG in DEXTROSE 5% 100 ML IV SCH ×2 (08:23→20:47)
[2019-06-23] MEDS: PIPERACILLIN/TAZOBACTAM 3.375 GM in DEXTROSE 5% 100 ML IV SCH ×3 (08:46→23:45)
[2019-06-23] MEDS ORDERED: INFLUENZA VIRUS QUAD VACCINE 0.5 ML SYR IM ONE (14:00)
[2019-06-23] MEDS ORDERED: INFLUENZA ADMINISTRATION CHARGE ONE (14:00)
--- NOTE | 2019-06-23 19:24 | Hospitalist Progress Note ---
Date of Service June 23, 2019 Assessment & Plan (1) Sepsis: Met criteria for sepsis per current [facility] criteria-fever, tachycardia. Source = pulmonary. Serum lactate 1.7. Blood cultures obtained received broad-spectrum antibiotic coverage. Systolic blood pressures greater than 90. (2) Pneumonia: Chest x-ray and CT of chest demonstrated right middle lobe infiltrate. Blood cultures negative so far. Persistent fever, chills, cough. T max 39.5. Continue doxycycline and piperacillin/tazobactam. Follow-up diagnostic imaging recommended to ensure resolution of radiographic abnormalities. (3) Elevated troponin: Serum troponin 0 0.452 at time of admission and trended downward. EKG showed sinus rhythm with nonspecific ST, T wave abnormalities. Echocardiogram showed mild concentric LVH, no segmental wall motion abnormalities, LVEF 65-70%. Elevated troponin attributed to pneumonia/sepsis. Acute coronary syndrome felt to be unlikely. (4) Schizophrenia: Managed with fluphenazine decanoate injections q 2 weeks. Inadvertently received dose early today. Start new schedule every 2 weeks with next injection on 07/06. (5) Bipolar disorder: Continue divalproex sodium. (6) DVT prophylaxis: Subcutaneous heparin. Ambulate as able. (7) Discharge planning issues: Anticipated return to [facility]. Subjective Recheck for pneumonia. Patient seen in their room around 1540. Intermittent fever and chills; Tmax 39.5 last evening. Persistent cough, but somewhat better. Less chest wall discomfort with coughing. Review of Systems: Constitutional- as noted above. Cardiac- no anginal symptoms. Pulmonary- as noted above. GI- no nausea, vomiting, diarrhea, melena, hematochezia. - no urinary symptoms. Otherwise, as noted above. Physical Exam Constitutional: no acute distress Eyes: + anicteric sclerae Respiratory: no respiratory distress Auscultation: + rhonchi Cardiovascular: Rate/Rhythm: regular rate and regular rhythm Heart Sounds: no gallop, no murmur and no cardiac rub Vessels: no JVD Extremities: no calf tenderness and no edema Gastrointestinal (Abdomen): normal bowel sounds, soft, nontender, no hepatosplenomegaly Skin: no rashes, warm and dry Psychiatric: Orientation: alert Results & Data Vital Signs (Past 12 Hours) Vital Signs Temp Pulse Resp BP Pulse Ox 06/23/19 15:08 37.3 C 69 18 146/79 H 94 06/23/19 14:26 37.3 C 69 20 146/79 H 94 Laboratory Results 06/22/19 05:42 06/22/19 05:42 Microbiology 06/21/19 00:49 Blood Aerobic Blood Culture - Preliminary No growth in Aerobic bottle after 48 hours. 06/21/19 00:49 Blood Anaerobic Blood Culture - Preliminary No growth in Anaerobic bottle after 48 hours. 06/21/19 00:22 Blood Aerobic Blood Culture - Preliminary No growth in Aerobic bottle after 48 hours. 06/21/19 00:22 Blood Anaerobic Blood Culture - Preliminary No growth in Anaerobic bottle after 48 hours. (1) Pneumonia Laterality: right Lung location: middle lobe of lung Pneumonia type: due to unspecified organism Qualified Code(s): J18.1 - Lobar pneumonia, unspecified organism
[2019-06-23] MEDS: DIVALPROEX DELAY RELEASE 500 MG TAB PO SCH (20:49)
[2019-06-23] MEDS: BENZTROPINE MESYLATE 1 MG TAB PO SCH (20:49)
[2019-06-23] MEDS: ACETAMINOPHEN 325 MG TAB PO PRN (22:35)
[2019-06-23] MEDS ORDERED: KETOROLAC TROMETHAMINE 15 MG/ML VIAL IV ONE (23:22)
[2019-06-24] MEDS: SODIUM CHLORIDE 0.9% 1000ML 1,000 ML IV SCH ×2 (04:20→14:19)
[2019-06-24] MEDS: HEPARIN SOD 5,000 UNIT/0.5 ML VIAL SQ SCH (05:42)
[2019-06-24] MEDS: DOXYCYCLINE HYCLATE 100 MG in DEXTROSE 5% 100 ML IV SCH ×2 (08:03→08:06)
[2019-06-24] MEDS: PIPERACILLIN/TAZOBACTAM 3.375 GM in DEXTROSE 5% 100 ML IV SCH (10:27)
--- NOTE | 2019-06-24 14:23 | Hospitalist Progress Note ---
Date of Service June 24, 2019 Assessment & Plan (1) Sepsis: Met criteria for sepsis per current CMS criteria-fever, tachycardia. Source = pulmonary. Serum lactate 1.7. Blood cultures obtained received broad-spectrum antibiotic coverage. Systolic blood pressures greater than 90. (2) Pneumonia: Chest x-ray and CT of chest demonstrated right middle lobe infiltrate. Received doxycycline and piperacillin/tazobactam. Blood cultures negative so far. Temp trending downward. Symptoms improved. Transition to oral therapy with doxycycline and amoxicillin / clavulanic acid to complete 7 days of therapy. Follow-up diagnostic imaging recommended to ensure resolution of radiographic abnormalities. Repeat CT in 4-6 weeks recommended. (3) Elevated troponin: Serum troponin 0 0.452 at time of admission and trended downward. EKG showed sinus rhythm with nonspecific ST, T wave abnormalities. Echocardiogram showed mild concentric LVH, no segmental wall motion abnormalities, LVEF 65-70%. Elevated troponin attributed to pneumonia/sepsis. Acute coronary syndrome felt to be unlikely. (4) Schizophrenia: Managed with fluphenazine decanoate injections q 2 weeks. Inadvertently received dose early today. Start new schedule every 2 weeks with next injection on 07/06. (5) Bipolar disorder: Continue divalproex sodium. (6) Diarrhea: Had some loose stools. C diff ordered, but no specimen received yet. Check stool for C diff at [facility] if diarrhea persists. (7) DVT prophylaxis: Receiving subcutaneous heparin. Ambulate as able. (8) Discharge planning issues: Returning to [facility] under care of medical team there. Subjective Recheck for pneumonia. Patient seen in their room around 1110. Feels better. Temp trending downward- Tmax 38.5 last evening. Cough much better. Less chest wall discomfort with coughing. Had 3 or 4 loose stools yesterday, one this morning. Review of Systems: Constitutional- as noted above. Cardiac- no anginal symptoms. Pulmonary- as noted above. GI- no nausea, vomiting, melena, hematochezia. Otherwise, as noted above. Physical Exam Constitutional: no acute distress Eyes: + anicteric sclerae Respiratory: no respiratory distress Auscultation: lungs clear to auscultation bilaterally; no rhonchi and no wheezes Cardiovascular: Rate/Rhythm: regular rate and regular rhythm Heart Sounds: no gallop, no murmur and no cardiac rub Vessels: no JVD Extremities: no calf tenderness and no edema Gastrointestinal (Abdomen): normal bowel sounds, soft, nontender, no hepatosplenomegaly Skin: no rashes, warm and dry Psychiatric: Orientation: alert Results & Data Vital Signs (Past 12 Hours) Vital Signs Temp Pulse Resp BP Pulse Ox 06/24/19 07:00 36.7 C 55 L 16 132/88 97 06/24/19 03:41 36.7 C (1) Pneumonia Laterality: right Lung location: middle lobe of lung Pneumonia type: due to unspecified organism Qualified Code(s): J18.1 - Lobar pneumonia, unspecified organism
--- NOTE | 2019-06-24 14:35 | Discharge Summary ---
Date of Service Date of Admission: 06/21/19 Date of Discharge: 06/24/19 Admission HPI Per Admitting Provider This is a 49-year-old male with past medical history significant for schizophrenia and bipolar, who was brought in from custodial because of low-grade fever and some questionable mental status change. In the ER, he was found to have temperature spike and leukocytosis. Chest x-ray showed some right middle lobe pneumonia, received IV antibiotics in the ER. Currently, resting comfortably. The patient says he was having fever for the last 2-3 days, feeling weak and generalized weakness. He has some dry cough. That is the reason he came to the ER, has some mild headaches, no dizziness, no earache, no runny nose, no sore throat, no difficulty swallowing. Appetite is okay. Denies any shortness of breath, no chest pain, no nausea, no vomiting, no abdominal pain. Normal bowel and bladder movements. No burning micturition, no melena or black stools. No rash. Currently, resting comfortably. Principal Diagnosis sepsis pneumonia, right middle lobe Discharge Data Allergies Allergy/AdvReac Type Severity Reaction Status Date / Time No Known Allergies Allergy Unverified 06/21/19 00:57 Consultations 06/21/19 01:34 ED Decision to Admit Stat Ordered Studies 06/21/19 01:12 CT angio chest PE protocol Urgent Hospital Course (1) Sepsis: Met criteria for sepsis per current CMS criteria-fever, tachycardia. Source = pulmonary. Serum lactate 1.7. Blood cultures obtained received broad-spectrum antibiotic coverage. Systolic blood pressures greater than 90. Management of pneumonia as discussed below. (2) Pneumonia: Chest x-ray and CT of chest demonstrated right middle lobe infiltrate. Received doxycycline and piperacillin/tazobactam. Blood cultures negative so far. Temp trending downward. Symptoms improved. O2 sats 97% on RA. Transition to oral therapy with doxycycline and amoxicillin / clavulanic acid to complete 7 days of therapy. Follow-up diagnostic imaging recommended to ensure resolution of radiographic abnormalities. Repeat CT in 4-6 weeks recommended. (3) Elevated troponin: Serum troponin 0 0.452 at time of admission and trended downward. EKG showed sinus rhythm with nonspecific ST, T wave abnormalities. Echocardiogram showed mild concentric LVH, no segmental wall motion abnormalities, LVEF 65-70%. Elevated troponin attributed to pneumonia/sepsis. Acute coronary syndrome felt to be unlikely. (4) Schizophrenia: Managed with fluphenazine decanoate injections q 2 weeks. Inadvertently received dose early today. Start new schedule every 2 weeks with next injection on 07/06. (5) Bipolar disorder: Continue divalproex sodium. (6) Diarrhea: Had some loose stools. C diff ordered, but no specimen received yet. Check stool for C diff at [facility] if diarrhea persists. (7) DVT prophylaxis: Receiving subcutaneous heparin. Ambulate as able. (8) Discharge planning issues: Returning to [facility] under care of medical team there. Total Time Total Time Spent Total Time Spent (In Minutes): 45 Discharge Plan Discharge Items [facility] Disposition: [facility] Reason For Visit: PNEUMONIA Discharge Diagnosis: pneumonia Condition on Discharge: Good Activity: Resume your previous activity Non-emergency contact: Primary Care Provider and Hospitalist Call non-emergency contact if: you have any medication questions, your symptoms worsen and your temperature is above 101 Follow-up/Referrals: [facility] [Primary Care Provider] - Diet: Regular Addtl Attending Provider Instructions: No smoking. Repeat CT chest recommended in 4-6 weeks. Check stool for C diff if diarrhea persists. Thank you for receiving this patient in transfer. Please call if you have any questions. Jonh Slade Pending Studies at Discharge: No Stand-Alone Forms: My [facility] Skilled Items Patient informed of condition?: Yes Discharge Level of Care: Other Communicable Disease: No Discharge Prognosis: Improving Lines: None Urinary Catheter: No Medications and DC Order Prescriptions: New amoxicillin-pot clavulanate [Augmentin] 875-125 mg tablet 1 tab PO BID Qty: 7 RF: 0 doxycycline hyclate 100 mg tablet,delayed release (DR/EC) 100 mg PO BID Qty: 7 RF: 0 acetaminophen 500 mg tablet 1,000 mg PO Q8H PRN (Reason: fever or pain) Qty: 60 RF: 0 guaifenesin 200 mg/5 mL liquid 200 mg PO Q6H PRN (Reason: cough) Qty: 118 RF: 0 Continued benztropine 1 mg Tablet 1 mg PO HS RF: 0 divalproex 500 mg Tablet,Delayed Release (Dr/Ec) 1,000 mg PO HS RF: 0 fluphenazine decanoate 25 mg/mL Solution See Rx Instructions .ROUTE .COMPLEX RF: 0 Admission Data Admit Date/Time: 06/21/19 01:34 Attending Provider: Jonh Slade Admit Provider: Fabrizio Tran Primary Care Provider: Judith MORALES Other Providers: Lew Irizarry ; Fabrizio Tran
--- NOTE | 2019-06-24 14:37 | Communication Note ---
Date of Service: June 24, 2019 Verbal report given to YOLY at [facility].
== END 2019-06-24 17:48 | DRG 871 ==
LOC: ED 21:38 → 2W 06-21 01:34 → SUATTDRO 06-21 01:34 → 2W 06-21 04:24